=== PATIENT | female | born 1945 | race Two or more races ===

== ENCOUNTER 2016-12-14 21:00 | Emergency (ER) | payer MEDICARE, MEDICAID ==
[~2016-12-14 21:00] MED LIST: AMARYL2 M1 PO; ASPIRIN EC81 MG PO; ATORVASTATIN CA20 M1 PO; BACTRIM DS TAB1 EAC2 PO; BACTRIM DS1 TA1 PO; COLACE100 MG PO; COZAAR25 MG PO; COZAAR50 M1 PO; FLAGYL500 MG PO; GEMFIBROZIL600 M2 PO; GLUCOPHAGE1000 M1 PO; GLUCOPHAGE1000 MG PO; JANUVIA100 M1 PO; LIPITOR20 M1 PO; LISINOPRIL20 MG; METFORMIN HCL500; MOBIC7.5 M2 PO; NAPROSYN500 MG PO; NEURONTIN300 M1 PO; NORCO 5-325 TA1 EACH PO; NORCO 5/325 TAB1 TAB PO; NORCO 5/3251 TAB PO; PAIN MED; VIBRAMYCIN100 M1 PO; ZOFRAN ODT4 MG/UDTAB PO
[2016-12-14] MEDS ORDERED: TYLENOL WITH C1 EACH PO (22:39)
[2016-12-14] MEDS ORDERED: BACTRIM DS TAB1 EAC2 PO (22:39)
== END 2016-12-14 22:46 ==
LOC: EDMED 21:00
DX: L03.011 Cellulitis of right finger (principal); E11.9 Type 2 diabetes mellitus without complications; Z79.899 Other long term (current) drug therapy